=== PATIENT | female | born 1980 | race Caucasian/White ===

== ENCOUNTER 2018-06-21 12:47 | Emergency (ER) | payer OTHER ==
[~2018-06-21] VITALS: Ht 160 cm; Wt 63.6 kg
[2018-06-21 13:00] VITALS: Ht 160 cm; Wt 63.6 kg
[2018-06-21] MEDS ORDERED: CETIRIZINE HCL5 MG PO (13:03)
[2018-06-21] MEDS ORDERED: TORADOL10 MG PO (15:42)
[2018-06-21 16:07] VITALS: BP 124/78
== END 2018-06-21 16:07 | disposition home or self-care (01) ==
LOC: D.ER 12:47
DX: S09.90XA Unspecified injury of head, initial encounter (principal); W22.8XXA Striking against or struck by other objects, initial encounter; Y93.89 Activity, other specified; Y92.019 Unspecified place in single-family (private) house as the place of occurrence of the external cause; S00.83XA Contusion of other part of head, initial encounter